=== PATIENT | male | born 1950 | race Caucasian/White ===

== ENCOUNTER → 2017-05-02 | Outpatient (CLI) | payer MEDICARE, MEDICAID ==
[2017-05-02] MEDS: TROPICAMIDE 1% 3 ML OPH (10:27)
[2017-05-02] MEDS: PROPARACAINE 0.5% 15 ML OPH (10:27)
[2017-05-02] MEDS: PHENYLephrine 10% 5 ML OPH (10:27)
[2017-05-02] MEDS: APRACLONIDINE 1% 0.1 ML OPH (10:27)
[2017-05-02] MEDS: OPHTHALMIC IRRIG SOLUTION 120 ML (10:27)
== END | disposition home or self-care (01) ==
LOC: RAD 09:44
DX: H26.8 Other specified cataract (principal)
CPT/HCPCS: 66821

== ENCOUNTER 2017-05-20 12:55 | Inpatient (IN) | payer MEDICARE, MEDICAID, OTHER ==
[2017-05-20 16:08] LABS: ADD MAN DIFF? NO
[2017-05-20 16:14] LABS: BASOPHILS % 0.3 % (0.0-2.0); EOSINOPHILS # 0.1 10^3/ul (0.0-0.5); EOSINOPHILS % 1.3 % (0.0-7.0); HEMATOCRIT 31.7 % (42.0-52.0); LYMPHOCYTES # 0.6 10^3/ul (0.8-2.9); LYMPHOCYTES % 6.4 % (15.0-51.0); MEAN CORPUSCULAR HEMOGLOBIN 27.5 pg (29.0-33.0); MEAN CORPUSCULAR HGB CONC 31.5 g/dl (32.0-37.0); MEAN CORPUSCULAR VOLUME 87.1 fl (82.0-101.0); MEAN PLATELET VOLUME 10.7 fl (7.4-10.4); MONOCYTE # 1.1 10^3/ul (0.3-0.9); MONOCYTES % 11.1 % (0.0-11.0); NEUTROPHIL # 7.6 10^3/ul (1.6-7.5); NEUTROPHILS % 79.3 % (39.0-77.0); PLATELET COUNT 122 10^3/UL (140-415); RED BLOOD COUNT 3.64 10^6/ul (4.70-6.10); RED CELL DISTRIBUTION WIDTH 15.4 % (11.5-14.5)
[2017-05-20 16:14] LABS: WHITE BLOOD COUNT 9.5 10^3/ul (4.8-10.8)
[2017-05-20 16:25] LABS: INR 1.13; PROTIME 14.7 Sec (11.9-14.9); PT RATIO 1.1
[2017-05-20 16:26] LABS: ANION GAP 21 (8-16); BLOOD UREA NITROGEN 77 mg/dl (7-20); CALCIUM 9.3 mg/dl (8.4-10.2); CARBON DIOXIDE 23 mmol/L (21-31); CHLORIDE 97 mmol/L (97-110); CREATININE 10.16 mg/dl (0.61-1.24); GLUCOSE 143 mg/dl (70-220); PARTIAL THROMBOPLASTIN TIME 41.6 Sec (25.0-35.0); POTASSIUM 5.9 mmol/L (3.5-5.1); SODIUM 135 mmol/L (135-144)
[2017-05-20 16:38] LABS: TROPONIN-I 0.104 ng/ml (0.00-0.12)
[2017-05-20] MEDS ORDERED: ONDANSETRON 4 MG INJ IV (17:00)
[2017-05-20] MEDS ORDERED: ACETAMINOPHEN 325 MG TAB PO (17:00)
[2017-05-20] MEDS: HYDROCODONE/APAP (10/325) TAB PO ×2 (19:00→22:14)
[2017-05-20] MEDS ORDERED: hydrALAzine 20 MG INJ IV (20:00)
[2017-05-20] MEDS: INSULIN ASPART [NOVOLOG] 3 ML PEN SC (21:00)
[2017-05-20] MEDS ORDERED: GLUCOSE GEL 15 GRAM TUBE PO ×2 (21:30)
[2017-05-20] MEDS: GABAPENTIN 300 MG CAP PO (21:58)
[2017-05-20] MEDS: NA POLYST SULFON 15 GM/60 ML BTL PO (21:58)
[2017-05-20] MEDS: HEPARIN 5,000 UNIT/0.5 ML VIAL SC (22:16)
[2017-05-21] MEDS ORDERED: SOD CHLORIDE 0.9% 500 ML IV
[2017-05-21] MEDS: SOD CHLORIDE 0.9% 500 ML IV (00:18)
[2017-05-21] MEDS: ALPRAZOLAM 1 MG TAB PO (02:55)
[2017-05-21 07:55] LABS: ANION GAP 20 (8-16); BLOOD UREA NITROGEN 84 mg/dl (7-20); CALCIUM 8.9 mg/dl (8.4-10.2); CARBON DIOXIDE 20 mmol/L (21-31); CHLORIDE 101 mmol/L (97-110); CREATININE 10.41 mg/dl (0.61-1.24); GLUCOSE 105 mg/dl (70-220); POTASSIUM 5.6 mmol/L (3.5-5.1); SODIUM 135 mmol/L (135-144)
[2017-05-21] MEDS ORDERED: INSULIN GLARGINE HUM REC ANLOG 32 UNIT SQ (09:00)
[2017-05-21] MEDS ORDERED: NON-FORMULARY/PATIENT OWN MED (Liraglutide (Victoza 3-Pak) 1.8 MG) SQ (09:00)
[2017-05-21] MEDS ORDERED: [UNRECOGNIZED DRUG - OTHER] SQ (09:00)
[2017-05-21] MEDS: GABAPENTIN 300 MG CAP PO ×2 (09:40→13:55)
[2017-05-21] MEDS: CLOPIDOGREL 75 MG TAB PO (09:40)
[2017-05-21] MEDS: HEPARIN 5,000 UNIT/0.5 ML VIAL SC ×2 (09:42→21:27)
[2017-05-21] MEDS ORDERED: PENDING SANTYL ORDER FOR WOUND CARE XX (10:00)
[2017-05-21] MEDS: INSULIN ASPART [NOVOLOG] 3 ML PEN SC ×3 (12:00→21:00)
[2017-05-21] MEDS: GABAPENTIN 100 MG CAP PO (21:21)
[2017-05-21] MEDS: HYDROCODONE/APAP (10/325) TAB PO (21:22)
[2017-05-21] MEDS: INFLUENZA VIRUS VACCINE 0.5 ML (DISPENSING) IM* (21:25)
[2017-05-21] MEDS: NA POLYST SULFON 15 GM/60 ML BTL PO (21:36)
[2017-05-22] MEDS: HYDROCODONE/APAP (10/325) TAB PO (05:25)
[2017-05-22 07:12] LABS: WHITE BLOOD COUNT 12.9 10^3/ul (4.8-10.8)
[2017-05-22 07:12] LABS: ADD MAN DIFF? NO; BASOPHIL # 0.1 10^3/ul (0.0-0.1); BASOPHILS % 0.4 % (0.0-2.0); EOSINOPHILS # 0.2 10^3/ul (0.0-0.5); EOSINOPHILS % 1.2 % (0.0-7.0); HEMATOCRIT 33.4 % (42.0-52.0); HEMOGLOBIN 10.1 g/dl (14.0-18.0); LYMPHOCYTES % 7.9 % (15.0-51.0); MEAN CORPUSCULAR HEMOGLOBIN 27.3 pg (29.0-33.0); MEAN CORPUSCULAR HGB CONC 30.2 g/dl (32.0-37.0); MEAN CORPUSCULAR VOLUME 90.3 fl (82.0-101.0); MEAN PLATELET VOLUME 11.1 fl (7.4-10.4); MONOCYTE # 1.1 10^3/ul (0.3-0.9); MONOCYTES % 8.4 % (0.0-11.0); NEUTROPHIL # 10.4 10^3/ul (1.6-7.5); NEUTROPHILS % 80.5 % (39.0-77.0); PLATELET COUNT 135 10^3/UL (140-415); RED CELL DISTRIBUTION WIDTH 15.9 % (11.5-14.5)
[2017-05-22] MEDS: INSULIN ASPART [NOVOLOG] 3 ML PEN SC ×4 (08:00→20:49)
[2017-05-22] MEDS ORDERED: PENDING SANTYL ORDER FOR WOUND CARE XX (08:00)
[2017-05-22 08:08] LABS: AMMONIA < 9 umol/l (9-30)
[2017-05-22] MEDS: GABAPENTIN 100 MG CAP PO ×3 (09:30→20:51)
[2017-05-22] MEDS: CLOPIDOGREL 75 MG TAB PO (09:30)
[2017-05-22 10:00] LABS: HEMOGLOBIN A1C 5.6 % (0-5.9)
[2017-05-22] MEDS: HEPARIN 5,000 UNIT/0.5 ML VIAL SC ×2 (10:41→20:50)
[2017-05-22 12:28] LABS: ALANINE AMINOTRANSFERASE 31 IU/L (13-69); ALBUMIN/GLOBULIN RATIO 1.15; ALKALINE PHOSPHATASE 229 IU/L (42-121); ANION GAP 24 (8-16); ASPARTATE AMINO TRANSFERASE 24 IU/L (15-46); BLOOD UREA NITROGEN 97 mg/dl (7-20); CALCIUM 8.5 mg/dl (8.4-10.2); CARBON DIOXIDE 17 mmol/L (21-31); CHLORIDE 102 mmol/L (97-110); GLUCOSE 92 mg/dl (70-220); SODIUM 136 mmol/L (135-144); TOTAL PROTEIN 5.6 g/dl (6.1-8.1)
[2017-05-22 12:46] LABS: CREATININE 11.02 mg/dl (0.61-1.24)
[2017-05-22 12:49] LABS: POTASSIUM 7.3 mmol/L (3.5-5.1)
[2017-05-22] MEDS: NA POLYST SULFON 15 GM/60 ML BTL PO (14:01)
[2017-05-22] MEDS ORDERED: BARIUM SULF 2% 450 ML BTL (BERRY SMOOTHIE) PO (17:00)
[2017-05-22] MEDS: morphine 2 MG INJ IV (18:16)
[2017-05-22] MEDS: LIDOCAINE 5% 35 GM OINT TOP (20:02)
[2017-05-23] MEDS: PIPER-TAZO 2.25 GM (PMX) 50 ML IVPB (01:00)
[2017-05-23] MEDS: morphine 2 MG INJ IV (06:37)
[2017-05-23] MEDS: INSULIN ASPART [NOVOLOG] 3 ML PEN SC ×4 (08:00→20:56)
[2017-05-23] MEDS: GABAPENTIN 100 MG CAP PO ×3 (08:05→20:54)
[2017-05-23] MEDS: CLOPIDOGREL 75 MG TAB PO (08:05)
[2017-05-23] MEDS: HEPARIN 5,000 UNIT/0.5 ML VIAL SC ×2 (08:07→20:55)
[2017-05-23] MEDS: INSULIN GLARGINE [LANtus] 3 ML PEN SC (08:08)
[2017-05-23] MEDS: HYDROCODONE/APAP (10/325) TAB PO (08:18)
[2017-05-23 10:47] LABS: IRON 58 ug/dl (35-150)
[2017-05-23 10:51] LABS: POTASSIUM 5.2 mmol/L (3.5-5.1)
[2017-05-23 10:57] LABS: % IRON SATURATION 43 % SAT (22-52); TOTAL IRON BINDING CAPACITY 136 ug/dl (241-421)
[2017-05-23] MEDS ORDERED: VANCOMYCIN IV PER PHARMACY XX (11:30)
[2017-05-23 13:46] LABS: HEPATITIS B SURFACE ANTIGEN NEGATIVE (NEGATIVE)
[2017-05-23 14:02] LABS: HEPATITIS B SURFACE ANTIBODY NEGATIVE (NEGATIVE)
[2017-05-23] MEDS: VANCOMYCIN 1.75 GM in DEXTROSE 5% 500 ML IVPB (14:23)
[2017-05-23] MEDS: SOD CHLORIDE 0.9% 250 ML IV (20:49)
[2017-05-23] MEDS: ZINC SULFATE 220 MG CAP NGT (20:54)
[2017-05-23] MEDS: ASCORBIC ACID 250 MG TAB PO (21:27)
[2017-05-23] MEDS: MULTIVIT/CA CARB/B CMPLX/FA TAB PO (21:27)
[2017-05-24] MEDS: morphine 2 MG INJ IV ×3 (02:00→21:38)
[2017-05-24 02:02] LABS: CREATINE KINASE 83 IU/L (23-200)
[2017-05-24 02:14] LABS: CK INDEX 19.2; TROPONIN-I 0.094 ng/ml (0.00-0.12)
[2017-05-24 07:57] LABS: ADD MAN DIFF? NO
[2017-05-24] MEDS: INSULIN ASPART [NOVOLOG] 3 ML PEN SC ×4 (08:00→21:00)
[2017-05-24 08:06] LABS: BASOPHIL # 0.1 10^3/ul (0.0-0.1); BASOPHILS % 0.4 % (0.0-2.0); EOSINOPHILS # 0.3 10^3/ul (0.0-0.5); EOSINOPHILS % 2.5 % (0.0-7.0); HEMATOCRIT 29.9 % (42.0-52.0); HEMOGLOBIN 9.3 g/dl (14.0-18.0); LYMPHOCYTES # 1.1 10^3/ul (0.8-2.9); LYMPHOCYTES % 9.6 % (15.0-51.0); MEAN CORPUSCULAR HEMOGLOBIN 27.6 pg (29.0-33.0); MEAN CORPUSCULAR HGB CONC 31.1 g/dl (32.0-37.0); MEAN CORPUSCULAR VOLUME 88.7 fl (82.0-101.0); MEAN PLATELET VOLUME 11.7 fl (7.4-10.4); MONOCYTE # 1.4 10^3/ul (0.3-0.9); MONOCYTES % 11.8 % (0.0-11.0); NEUTROPHIL # 8.5 10^3/ul (1.6-7.5); NEUTROPHILS % 73.4 % (39.0-77.0); PLATELET COUNT 107 10^3/UL (140-415); RED BLOOD COUNT 3.37 10^6/ul (4.70-6.10); RED CELL DISTRIBUTION WIDTH 16.1 % (11.5-14.5)
[2017-05-24 08:06] LABS: WHITE BLOOD COUNT 11.5 10^3/ul (4.8-10.8)
[2017-05-24] MEDS: LIDOCAINE 5% 35 GM OINT TOP (08:24)
[2017-05-24 08:30] LABS: LACTIC ACID 1.3 mmol/L (0.5-2.0)
[2017-05-24 08:32] LABS: ANION GAP 22 (8-16); BLOOD UREA NITROGEN 97 mg/dl (7-20); CALCIUM 8.6 mg/dl (8.4-10.2); CARBON DIOXIDE 21 mmol/L (21-31); CHLORIDE 96 mmol/L (97-110); GLUCOSE 80 mg/dl (70-220); POTASSIUM 5.2 mmol/L (3.5-5.1); SODIUM 134 mmol/L (135-144)
[2017-05-24] MEDS: CLOPIDOGREL 75 MG TAB PO (08:36)
[2017-05-24] MEDS: ASCORBIC ACID 250 MG TAB PO ×2 (08:36→21:37)
[2017-05-24] MEDS: ZINC SULFATE 220 MG CAP NGT (08:36)
[2017-05-24] MEDS: GABAPENTIN 100 MG CAP PO ×3 (08:36→21:37)
[2017-05-24] MEDS: HEPARIN 5,000 UNIT/0.5 ML VIAL SC ×2 (08:37→21:39)
[2017-05-24] MEDS: INSULIN GLARGINE [LANtus] 3 ML PEN SC (08:38)
[2017-05-24] MEDS: PIPER-TAZO 2.25 GM (PMX) 50 ML IVPB ×3 (08:46→21:47)
[2017-05-24 08:53] LABS: CREATININE 10.38 mg/dl (0.61-1.24)
[2017-05-24 09:08] LABS: HIV 1&2 ANTIBODY NEGATIVE (NEGATIVE)
[2017-05-24 09:49] LABS: CREATINE KINASE 77 IU/L (23-200)
[2017-05-24 10:03] LABS: TROPONIN-I 0.086 ng/ml (0.00-0.12)
[2017-05-24 12:39] LABS: CREATINE KINASE 62 IU/L (23-200)
[2017-05-24 12:53] LABS: CK INDEX 20.6; TROPONIN-I 0.075 ng/ml (0.00-0.12)
[2017-05-24] MEDS ORDERED: COLLAGENASE 30 GM TUBE TOP (16:00)
[2017-05-24] MEDS: HYDROCODONE/APAP (10/325) TAB PO (22:20)
[2017-05-25] MEDS: EPOETIN 3000 UNITS/1 ML INJ (ESRD) SC (01:50)
[2017-05-25] MEDS: ALPRAZOLAM 1 MG TAB PO (02:25)
[2017-05-25] MEDS: PIPER-TAZO 2.25 GM (PMX) 50 ML IVPB ×3 (06:00→21:49)
[2017-05-25 06:22] LABS: ADD MAN DIFF? NO
[2017-05-25 06:33] LABS: WHITE BLOOD COUNT 7.3 10^3/ul (4.8-10.8)
[2017-05-25 06:33] LABS: ABNORMAL IP MESSAGE 1; BASOPHILS % 0.4 % (0.0-2.0); EOSINOPHILS # 0.2 10^3/ul (0.0-0.5); HEMATOCRIT 26.3 % (42.0-52.0); HEMOGLOBIN 8.6 g/dl (14.0-18.0); LYMPHOCYTES # 0.8 10^3/ul (0.8-2.9); LYMPHOCYTES % 11.6 % (15.0-51.0); MEAN CORPUSCULAR HEMOGLOBIN 28.2 pg (29.0-33.0); MEAN CORPUSCULAR HGB CONC 32.7 g/dl (32.0-37.0); MEAN CORPUSCULAR VOLUME 86.2 fl (82.0-101.0); MEAN PLATELET VOLUME 11.7 fl (7.4-10.4); MONOCYTE # 0.7 10^3/ul (0.3-0.9); MONOCYTES % 10.1 % (0.0-11.0); NEUTROPHIL # 5.3 10^3/ul (1.6-7.5); NEUTROPHILS % 72.6 % (39.0-77.0); PLATELET COUNT 89 10^3/UL (140-415); POSITIVE DIFF @See below; RED BLOOD COUNT 3.05 10^6/ul (4.70-6.10); RED CELL DISTRIBUTION WIDTH 15.9 % (11.5-14.5)
[2017-05-25 06:59] LABS: VANCOMYCIN,RANDOM 15.3 ug/ml
[2017-05-25 07:23] LABS: ANION GAP 19 (8-16); BLOOD UREA NITROGEN 77 mg/dl (7-20); CALCIUM 8.2 mg/dl (8.4-10.2); CARBON DIOXIDE 23 mmol/L (21-31); CHLORIDE 98 mmol/L (97-110); CREATININE 9.08 mg/dl (0.61-1.24); GLUCOSE 78 mg/dl (70-220); POTASSIUM 4.6 mmol/L (3.5-5.1); SODIUM 135 mmol/L (135-144)
[2017-05-25] MEDS: INSULIN ASPART [NOVOLOG] 3 ML PEN SC ×4 (07:55→20:22)
[2017-05-25] MEDS: DEXTROSE 50% 50 ML SYRINGE IV (08:17)
[2017-05-25] MEDS: HYDROCODONE/APAP (10/325) TAB PO ×2 (08:26→21:27)
[2017-05-25] MEDS: GABAPENTIN 100 MG CAP PO ×3 (08:26→20:18)
[2017-05-25] MEDS: CLOPIDOGREL 75 MG TAB PO (08:26)
[2017-05-25] MEDS: ASCORBIC ACID 250 MG TAB PO ×2 (08:26→21:00)
[2017-05-25] MEDS: ZINC SULFATE 220 MG CAP NGT (08:26)
[2017-05-25] MEDS: HEPARIN 5,000 UNIT/0.5 ML VIAL SC ×2 (08:32→21:28)
[2017-05-25] MEDS: LIDOCAINE 5% 35 GM OINT TOP (08:34)
[2017-05-25] MEDS: INSULIN GLARGINE [LANtus] 3 ML PEN SC (09:59)
[2017-05-25] MEDS: COLLAGENASE 30 GM TUBE TOP (10:00)
[2017-05-25] MEDS: SOD CHLORIDE 0.9% 500 ML IV ×2 (11:43→16:18)
[2017-05-25] MEDS: SOD CHLORIDE 0.9% 1,000 ML IV (17:34)
[2017-05-25] MEDS: morphine 2 MG INJ IV (20:18)
[2017-05-25] MEDS: LINEZOLID 600 MG/D5W (PMX) 300 ML IVPB (20:18)
[2017-05-26] MEDS: morphine 2 MG INJ IV ×2 (00:17→09:13)
[2017-05-26] MEDS: SOD CHLORIDE 0.9% 1,000 ML IV ×3 (03:15→21:01)
[2017-05-26] MEDS: HYDROCODONE/APAP (10/325) TAB PO ×3 (03:58→20:25)
[2017-05-26] MEDS: PIPER-TAZO 2.25 GM (PMX) 50 ML IVPB ×3 (05:41→20:57)
[2017-05-26 06:45] LABS: HAAIG REFLEX REFLEX FILED
[2017-05-26] MEDS: INSULIN ASPART [NOVOLOG] 3 ML PEN SC ×4 (07:35→21:00)
[2017-05-26 08:02] LABS: HEPATITIS B SURFACE ANTIGEN NEGATIVE (NEGATIVE)
[2017-05-26 08:20] LABS: HEPATITIS B CORE ANTIBODY NEGATIVE (NEGATIVE); HEPATITIS C VIRAL ANTIBODY NEGATIVE (NEGATIVE)
[2017-05-26] MEDS: CLOPIDOGREL 75 MG TAB PO (09:05)
[2017-05-26] MEDS: ASCORBIC ACID 250 MG TAB PO ×2 (09:05→20:57)
[2017-05-26] MEDS: GABAPENTIN 100 MG CAP PO ×3 (09:05→20:56)
[2017-05-26] MEDS: LINEZOLID 600 MG/D5W (PMX) 300 ML IVPB ×2 (09:05→20:56)
[2017-05-26] MEDS: ZINC SULFATE 220 MG CAP NGT (09:05)
[2017-05-26] MEDS: INSULIN GLARGINE [LANtus] 3 ML PEN SC (09:07)
[2017-05-26] MEDS: COLLAGENASE 30 GM TUBE TOP (09:09)
[2017-05-26] MEDS: HEPARIN 5,000 UNIT/0.5 ML VIAL SC ×2 (10:00→21:00)
[2017-05-26] MEDS ORDERED: morphine 2 MG INJ IV (12:47)
[2017-05-26] MEDS: morphine 4 MG/ML VIAL IV ×2 (12:58→19:08)
[2017-05-27] MEDS: morphine 4 MG/ML VIAL IV ×3 (00:03→15:55)
[2017-05-27] MEDS: ALPRAZOLAM 1 MG TAB PO ×2 (00:14→23:29)
[2017-05-27] MEDS: HYDROCODONE/APAP (10/325) TAB PO ×3 (02:24→23:29)
[2017-05-27] MEDS: PIPER-TAZO 2.25 GM (PMX) 50 ML IVPB ×3 (05:25→21:56)
[2017-05-27] MEDS: INSULIN ASPART [NOVOLOG] 3 ML PEN SC ×4 (07:55→20:16)
[2017-05-27] MEDS: SOD CHLORIDE 0.9% 1,000 ML IV ×2 (08:30→13:08)
[2017-05-27] MEDS: LINEZOLID 600 MG/D5W (PMX) 300 ML IVPB ×2 (08:40→20:05)
[2017-05-27] MEDS: INSULIN GLARGINE [LANtus] 3 ML PEN SC (08:40)
[2017-05-27] MEDS: HEPARIN 5,000 UNIT/0.5 ML VIAL SC ×2 (08:43→20:16)
[2017-05-27] MEDS: COLLAGENASE 30 GM TUBE TOP (08:48)
[2017-05-27] MEDS: GABAPENTIN 100 MG CAP PO ×3 (08:49→20:05)
[2017-05-27] MEDS: ASCORBIC ACID 250 MG TAB PO ×2 (08:49→20:05)
[2017-05-27] MEDS: CLOPIDOGREL 75 MG TAB PO (08:49)
[2017-05-27] MEDS: ZINC SULFATE 220 MG CAP NGT (08:49)
[2017-05-27 08:52] LABS: PHOSPHORUS 9.8 mg/dl (2.5-4.9)
[2017-05-27 15:02] LABS: PHOSPHORUS 10.6 mg/dl (2.5-4.9)
[2017-05-27] MEDS: EPOETIN 3000 UNITS/1 ML INJ (ESRD) SC (16:52)
[2017-05-27] MEDS: morphine 2 MG INJ IV (20:19)
[2017-05-28] MEDS: SOD CHLORIDE 0.9% 1,000 ML IV ×2 (04:30→14:30)
[2017-05-28] MEDS: morphine 2 MG INJ IV ×3 (05:19→21:45)
[2017-05-28] MEDS: PIPER-TAZO 2.25 GM (PMX) 50 ML IVPB ×3 (05:58→21:34)
[2017-05-28] MEDS: INSULIN ASPART [NOVOLOG] 3 ML PEN SC ×4 (07:55→21:00)
[2017-05-28] MEDS: INSULIN GLARGINE [LANtus] 3 ML PEN SC (08:41)
[2017-05-28] MEDS: CLOPIDOGREL 75 MG TAB PO (09:18)
[2017-05-28] MEDS: LINEZOLID 600 MG/D5W (PMX) 300 ML IVPB (09:18)
[2017-05-28] MEDS: ASCORBIC ACID 250 MG TAB PO ×2 (09:18→21:34)
[2017-05-28] MEDS: ZINC SULFATE 220 MG CAP NGT (09:18)
[2017-05-28] MEDS: GABAPENTIN 100 MG CAP PO ×3 (09:18→21:34)
[2017-05-28] MEDS: COLLAGENASE 30 GM TUBE TOP (09:19)
[2017-05-28] MEDS: HEPARIN 5,000 UNIT/0.5 ML VIAL SC ×2 (09:24→22:21)
[2017-05-28 12:01] LABS: ADD UMIC YES; UR ASCORBIC ACID NEGATIVE (NEGATIVE); UR BACTERIA FEW /HPF (NONE SEEN); UR BILIRUBIN (Dip) NEGATIVE (NEGATIVE); UR BLOOD (Dip) 3+ mg/dL (NEGATIVE); UR CLARITY CLOUDY (CLEAR); UR COLOR YELLOW (YELLOW); UR GLUCOSE (Dip) NEGATIVE (NEGATIVE); UR KETONES (Dip) NEGATIVE (NEGATIVE); UR LEUKOCYTE ESTERASE (Dip) TRACE Leu/ul (NEGATIVE); UR MUCUS FEW /HPF (NONE SEEN); UR NITRITE (Dip) NEGATIVE (NEGATIVE); UR RBC 167 /HPF (0-5); UR SPECIFIC GRAVITY (Dip) 1.005 (1.003-1.030); UR TOTAL PROTEIN (Dip) 1+ mg/dl (NEGATIVE); UR UROBILINOGEN (Dip) NEGATIVE (NEGATIVE); UR WBC 27 /HPF (0-5)
[2017-05-28] MEDS: HYDROCODONE/APAP (10/325) TAB PO ×3 (12:32→23:13)
[2017-05-28] MEDS: SEVELAMER CARBONATE 2.4 GM PKT PO ×2 (12:35→17:36)
[2017-05-28] MEDS: ALPRAZOLAM 1 MG TAB PO (22:33)
[2017-05-29] MEDS: SOD CHLORIDE 0.9% 1,000 ML IV ×2 (00:30→05:54)
[2017-05-29] MEDS: morphine 2 MG INJ IV ×2 (00:52→06:38)
[2017-05-29] MEDS: HYDROCODONE/APAP (10/325) TAB PO ×4 (04:19→21:56)
[2017-05-29] MEDS: PIPER-TAZO 2.25 GM (PMX) 50 ML IVPB ×3 (05:49→21:53)
[2017-05-29] MEDS: INSULIN ASPART [NOVOLOG] 3 ML PEN SC ×4 (07:55→21:00)
[2017-05-29] MEDS: INSULIN GLARGINE [LANtus] 3 ML PEN SC (08:05)
[2017-05-29] MEDS: SEVELAMER 800 MG TAB PO ×3 (08:11→17:35)
[2017-05-29] MEDS: GABAPENTIN 100 MG CAP PO ×3 (08:11→21:52)
[2017-05-29] MEDS: ASCORBIC ACID 250 MG TAB PO ×2 (08:11→21:52)
[2017-05-29] MEDS: CLOPIDOGREL 75 MG TAB PO (08:11)
[2017-05-29] MEDS: ZINC SULFATE 220 MG CAP NGT (08:11)
[2017-05-29] MEDS: COLLAGENASE 30 GM TUBE TOP (08:12)
[2017-05-29] MEDS: HEPARIN 5,000 UNIT/0.5 ML VIAL SC ×2 (08:21→22:00)
[2017-05-29 09:17] LABS: ADD MAN DIFF? NO
[2017-05-29 09:25] LABS: WHITE BLOOD COUNT 16.8 10^3/ul (4.8-10.8)
[2017-05-29 09:25] LABS: BASOPHIL # 0.1 10^3/ul (0.0-0.1); BASOPHILS % 0.4 % (0.0-2.0); EOSINOPHILS # 0.4 10^3/ul (0.0-0.5); EOSINOPHILS % 2.3 % (0.0-7.0); HEMATOCRIT 30.4 % (42.0-52.0); HEMOGLOBIN 9.7 g/dl (14.0-18.0); LYMPHOCYTES # 0.9 10^3/ul (0.8-2.9); LYMPHOCYTES % 5.5 % (15.0-51.0); MEAN CORPUSCULAR HEMOGLOBIN 27.8 pg (29.0-33.0); MEAN CORPUSCULAR HGB CONC 31.9 g/dl (32.0-37.0); MEAN CORPUSCULAR VOLUME 87.1 fl (82.0-101.0); MEAN PLATELET VOLUME 12.4 fl (7.4-10.4); MONOCYTE # 1.1 10^3/ul (0.3-0.9); MONOCYTES % 6.4 % (0.0-11.0); NEUTROPHIL # 14.1 10^3/ul (1.6-7.5); NEUTROPHILS % 83.7 % (39.0-77.0); PLATELET COUNT 122 10^3/UL (140-415); RED BLOOD COUNT 3.49 10^6/ul (4.70-6.10); RED CELL DISTRIBUTION WIDTH 16.8 % (11.5-14.5)
[2017-05-29 09:57] LABS: ANION GAP 22 (8-16); BLOOD UREA NITROGEN 83 mg/dl (7-20); CALCIUM 8.3 mg/dl (8.4-10.2); CARBON DIOXIDE 17 mmol/L (21-31); CHLORIDE 99 mmol/L (97-110); GLUCOSE 60 mg/dl (70-220); POTASSIUM 4.8 mmol/L (3.5-5.1); SODIUM 133 mmol/L (135-144)
[2017-05-29 10:23] LABS: CREATININE 8.87 mg/dl (0.61-1.24)
[2017-05-29] MEDS: PHENAZOPYRIDINE 100 MG TAB PO (11:36)
[2017-05-29 13:42] LABS: PROCALCITONIN 2.92 ng/mL (<0.10)
[2017-05-29] MEDS: EPOETIN 3000 UNITS/1 ML INJ (ESRD) SC (17:50)
[2017-05-29] MEDS: DEXTROSE 50% 50 ML SYRINGE IV (21:33)
[2017-05-29] MEDS: GLUCOSE GEL 15 GRAM TUBE BUCCAL (21:44)
[2017-05-29] MEDS: ACETAMINOPHEN 500 MG TAB PO (22:32)
[2017-05-29] MEDS: ALPRAZOLAM 1 MG TAB PO (22:32)
[2017-05-29 23:37] LABS: GLUCOSE 76 mg/dl (70-220)
[2017-05-30] MEDS: ONDANSETRON 4 MG INJ IV (00:58)
[2017-05-30] MEDS: morphine 2 MG INJ IV ×2 (00:58→12:37)
[2017-05-30] MEDS: DEXTROSE 50% 50 ML SYRINGE IV ×2 (02:33→08:33)
[2017-05-30] MEDS: ALBUMIN HUMAN 25% 100 ML IV (05:16)
[2017-05-30] MEDS: INSULIN ASPART [NOVOLOG] 3 ML PEN SC ×4 (07:55→21:00)
[2017-05-30 08:22] LABS: ADD MAN DIFF? NO
[2017-05-30] MEDS: DEXTROSE 10% 1,000 ML IV (08:22)
[2017-05-30] MEDS: GLUCOSE GEL 15 GRAM TUBE BUCCAL (08:30)
[2017-05-30 08:32] LABS: ABNORMAL IP MESSAGE 1; BASOPHILS % 0.3 % (0.0-2.0); EOSINOPHILS # 0.3 10^3/ul (0.0-0.5); EOSINOPHILS % 2.2 % (0.0-7.0); HEMATOCRIT 27.1 % (42.0-52.0); HEMOGLOBIN 8.8 g/dl (14.0-18.0); LYMPHOCYTES # 0.8 10^3/ul (0.8-2.9); LYMPHOCYTES % 5.2 % (15.0-51.0); MEAN CORPUSCULAR HEMOGLOBIN 28.5 pg (29.0-33.0); MEAN CORPUSCULAR HGB CONC 32.5 g/dl (32.0-37.0); MEAN CORPUSCULAR VOLUME 87.7 fl (82.0-101.0); MEAN PLATELET VOLUME 11.9 fl (7.4-10.4); MONOCYTE # 1.3 10^3/ul (0.3-0.9); MONOCYTES % 8.2 % (0.0-11.0); NEUTROPHIL # 12.9 10^3/ul (1.6-7.5); NEUTROPHILS % 82.1 % (39.0-77.0); PLATELET COUNT 94 10^3/UL (140-415); POSITIVE DIFF @See below; RED BLOOD COUNT 3.09 10^6/ul (4.70-6.10); RED CELL DISTRIBUTION WIDTH 16.7 % (11.5-14.5)
[2017-05-30 08:32] LABS: WHITE BLOOD COUNT 15.7 10^3/ul (4.8-10.8)
[2017-05-30] MEDS: PIPER-TAZO 2.25 GM (PMX) 50 ML IVPB ×3 (08:36→22:12)
[2017-05-30] MEDS: ASCORBIC ACID 250 MG TAB PO ×2 (08:36→20:38)
[2017-05-30] MEDS: CLOPIDOGREL 75 MG TAB PO (08:36)
[2017-05-30] MEDS: ZINC SULFATE 220 MG CAP NGT (08:36)
[2017-05-30] MEDS: GABAPENTIN 100 MG CAP PO ×3 (08:36→20:38)
[2017-05-30] MEDS: MIDODRINE 5 MG TAB PO ×2 (08:36→17:37)
[2017-05-30] MEDS: SEVELAMER 800 MG TAB PO ×3 (08:36→17:36)
[2017-05-30] MEDS: HEPARIN 5,000 UNIT/0.5 ML VIAL SC ×2 (08:40→20:39)
[2017-05-30 09:03] LABS: ANION GAP 22 (8-16); BLOOD UREA NITROGEN 81 mg/dl (7-20); CALCIUM 8.4 mg/dl (8.4-10.2); CARBON DIOXIDE 19 mmol/L (21-31); CHLORIDE 99 mmol/L (97-110); GLUCOSE 80 mg/dl (70-220); POTASSIUM 4.7 mmol/L (3.5-5.1); SODIUM 135 mmol/L (135-144)
[2017-05-30 09:11] LABS: CREATININE 8.67 mg/dl (0.61-1.24)
[2017-05-30] MEDS: INFLUENZA VIRUS VACCINE 0.5 ML SYG IM* (09:37)
[2017-05-30] MEDS: COLLAGENASE 30 GM TUBE TOP (11:15)
[2017-05-30 11:19] LABS: LACTIC ACID 1.1 mmol/L (0.5-2.0)
[2017-05-30] MEDS: LINEZOLID 600 MG/D5W (PMX) 300 ML IVPB ×2 (11:26→20:36)
[2017-05-30 11:30] LABS: ALANINE AMINOTRANSFERASE 25 IU/L (13-69); ALBUMIN 2.9 g/dl (3.3-4.9); ALKALINE PHOSPHATASE 178 IU/L (42-121); ASPARTATE AMINO TRANSFERASE 17 IU/L (15-46); TOTAL PROTEIN 5.2 g/dl (6.1-8.1)
[2017-05-30] MEDS: HYDROCODONE/APAP (10/325) TAB PO ×2 (16:21→20:41)
[2017-05-30] MEDS: LIDOCAINE 5% 35 GM OINT TOP (16:42)
[2017-05-30] MEDS: METHADONE 5 MG TAB PO (17:36)
[2017-05-30 19:43] LABS: RAPID PLASMA REAGIN NONREACTIVE (NR)
[2017-05-30] MEDS: HYDROmorphONE 1 MG/ML SYG IV (22:17)
[2017-05-31] MEDS: ALPRAZOLAM 1 MG TAB PO (01:27)
[2017-05-31] MEDS: METHADONE 5 MG TAB PO ×3 (01:28→17:57)
[2017-05-31] MEDS: HYDROmorphONE 1 MG/ML SYG IV ×3 (02:21→23:15)
[2017-05-31] MEDS: ZOLPIDEM 5 MG TAB PO (03:11)
[2017-05-31] MEDS: PIPER-TAZO 2.25 GM (PMX) 50 ML IVPB ×3 (05:43→22:49)
[2017-05-31] MEDS: DEXTROSE 10% 1,000 ML IV ×2 (07:30→22:48)
[2017-05-31] MEDS: INSULIN ASPART [NOVOLOG] 3 ML PEN SC ×4 (07:55→20:32)
[2017-05-31] MEDS: LINEZOLID 600 MG/D5W (PMX) 300 ML IVPB ×2 (08:53→20:19)
[2017-05-31] MEDS: HEPARIN 5,000 UNIT/0.5 ML VIAL SC ×2 (08:58→20:24)
[2017-05-31] MEDS: MIDODRINE 5 MG TAB PO ×2 (09:00→17:00)
[2017-05-31] MEDS: ASCORBIC ACID 250 MG TAB PO ×2 (10:38→20:22)
[2017-05-31] MEDS: ZINC SULFATE 220 MG CAP NGT (10:38)
[2017-05-31] MEDS: SEVELAMER 800 MG TAB PO ×3 (10:38→17:58)
[2017-05-31] MEDS: CLOPIDOGREL 75 MG TAB PO (10:38)
[2017-05-31] MEDS: GABAPENTIN 100 MG CAP PO ×3 (10:39→20:21)
[2017-05-31] MEDS: LIDOCAINE 5% 35 GM OINT TOP (15:33)
[2017-05-31] MEDS: COLLAGENASE 30 GM TUBE TOP (15:35)
[2017-05-31] MEDS: EPOETIN 2000 UNITS/1 ML INJ (ESRD) SC (18:00)
[2017-05-31] MEDS: EPOETIN 3000 UNITS/1 ML INJ (ESRD) SC (18:21)
[2017-06-01] MEDS: METHADONE 5 MG TAB PO ×2 (01:19→08:06)
[2017-06-01] MEDS: HYDROmorphONE 1 MG/ML SYG IV ×2 (03:27→06:34)
[2017-06-01] MEDS: PIPER-TAZO 2.25 GM (PMX) 50 ML IVPB ×3 (05:50→23:02)
[2017-06-01 07:25] LABS: ADD MAN DIFF? NO
[2017-06-01 07:32] LABS: ABNORMAL IP MESSAGE 1; BASOPHIL # 0.1 10^3/ul (0.0-0.1); BASOPHILS % 0.4 % (0.0-2.0); EOSINOPHILS # 0.4 10^3/ul (0.0-0.5); EOSINOPHILS % 1.9 % (0.0-7.0); HEMATOCRIT 26.2 % (42.0-52.0); HEMOGLOBIN 8.5 g/dl (14.0-18.0); LYMPHOCYTES # 1.3 10^3/ul (0.8-2.9); LYMPHOCYTES % 5.7 % (15.0-51.0); MEAN CORPUSCULAR HEMOGLOBIN 28.4 pg (29.0-33.0); MEAN CORPUSCULAR HGB CONC 32.4 g/dl (32.0-37.0); MEAN CORPUSCULAR VOLUME 87.6 fl (82.0-101.0); MEAN PLATELET VOLUME 12.2 fl (7.4-10.4); MONOCYTES % 8.7 % (0.0-11.0); NEUTROPHIL # 18.8 10^3/ul (1.6-7.5); NEUTROPHILS % 80.9 % (39.0-77.0); PLATELET COUNT 101 10^3/UL (140-415); POSITIVE DIFF @See below; RED BLOOD COUNT 2.99 10^6/ul (4.70-6.10); RED CELL DISTRIBUTION WIDTH 17.2 % (11.5-14.5)
[2017-06-01 07:32] LABS: WHITE BLOOD COUNT 23.3 10^3/ul (4.8-10.8)
[2017-06-01 07:55] LABS: ANION GAP 23 (8-16); BLOOD UREA NITROGEN 94 mg/dl (7-20); CALCIUM 8.2 mg/dl (8.4-10.2); CARBON DIOXIDE 15 mmol/L (21-31); CHLORIDE 96 mmol/L (97-110); GLUCOSE 116 mg/dl (70-220); POTASSIUM 5.8 mmol/L (3.5-5.1); SODIUM 128 mmol/L (135-144)
[2017-06-01] MEDS: INSULIN ASPART [NOVOLOG] 3 ML PEN SC ×4 (07:55→20:50)
[2017-06-01] MEDS: HYDROCODONE/APAP (10/325) TAB PO ×2 (08:06→20:50)
[2017-06-01] MEDS: CLOPIDOGREL 75 MG TAB PO (08:07)
[2017-06-01] MEDS: COLLAGENASE 30 GM TUBE TOP (08:07)
[2017-06-01] MEDS: SEVELAMER 800 MG TAB PO ×3 (08:07→17:15)
[2017-06-01] MEDS: ZINC SULFATE 220 MG CAP NGT (08:07)
[2017-06-01] MEDS: ASCORBIC ACID 250 MG TAB PO ×2 (08:07→20:46)
[2017-06-01] MEDS: GABAPENTIN 100 MG CAP PO ×3 (08:07→20:46)
[2017-06-01] MEDS: MIDODRINE 5 MG TAB PO ×2 (08:08→17:00)
[2017-06-01] MEDS: LINEZOLID 600 MG/D5W (PMX) 300 ML IVPB ×2 (08:08→20:45)
[2017-06-01 08:12] LABS: CREATININE 9.62 mg/dl (0.61-1.24)
[2017-06-01] MEDS: HEPARIN 5,000 UNIT/0.5 ML VIAL SC ×2 (08:13→21:09)
[2017-06-01] MEDS: HYDROmorphONE 2 MG/ML SYG IV ×5 (09:50→22:03)
[2017-06-01] MEDS ORDERED: HYDROmorphONE 1 MG/ML SYG IV (12:30)
[2017-06-01] MEDS: ACETAMINOPHEN 500 MG TAB PO (15:57)
[2017-06-01] MEDS: METHADONE (1 MG/ML 5 ML PO UD SYG) PO (17:16)
[2017-06-01] MEDS: ONDANSETRON 4 MG INJ IV (17:23)
[2017-06-02] MEDS: HYDROmorphONE 2 MG/ML SYG IV ×8 (00:51→18:49)
[2017-06-02] MEDS: METHADONE (1 MG/ML 5 ML PO UD SYG) PO ×3 (02:40→18:19)
[2017-06-02] MEDS: DEXTROSE 10% 1,000 ML IV (06:51)
[2017-06-02] MEDS: PIPER-TAZO 2.25 GM (PMX) 50 ML IVPB ×2 (06:51→12:57)
[2017-06-02 07:08] LABS: ADD MAN DIFF? NO
[2017-06-02 07:09] LABS: WHITE BLOOD COUNT 23.8 10^3/ul (4.8-10.8)
[2017-06-02 07:09] LABS: ABNORMAL IP MESSAGE 1; BASOPHIL # 0.1 10^3/ul (0.0-0.1); BASOPHILS % 0.3 % (0.0-2.0); EOSINOPHILS # 0.2 10^3/ul (0.0-0.5); EOSINOPHILS % 0.9 % (0.0-7.0); HEMATOCRIT 28.8 % (42.0-52.0); LYMPHOCYTES # 1.3 10^3/ul (0.8-2.9); LYMPHOCYTES % 5.3 % (15.0-51.0); MEAN CORPUSCULAR HEMOGLOBIN 28.1 pg (29.0-33.0); MEAN CORPUSCULAR HGB CONC 31.3 g/dl (32.0-37.0); MEAN PLATELET VOLUME 12.1 fl (7.4-10.4); MONOCYTE # 1.7 10^3/ul (0.3-0.9); NEUTROPHIL # 19.6 10^3/ul (1.6-7.5); NEUTROPHILS % 82.5 % (39.0-77.0); PLATELET COUNT 108 10^3/UL (140-415); POSITIVE DIFF @See below
[2017-06-02] MEDS: GABAPENTIN 100 MG CAP PO ×3 (07:50→21:00)
[2017-06-02] MEDS: MIDODRINE 5 MG TAB PO (07:50)
[2017-06-02] MEDS: CLOPIDOGREL 75 MG TAB PO (07:50)
[2017-06-02] MEDS: ASCORBIC ACID 250 MG TAB PO (07:51)
[2017-06-02] MEDS: ZINC SULFATE 220 MG CAP NGT (07:51)
[2017-06-02] MEDS: SEVELAMER 800 MG TAB PO ×3 (07:51→17:55)
[2017-06-02] MEDS: HEPARIN 5,000 UNIT/0.5 ML VIAL SC (07:54)
[2017-06-02] MEDS: COLLAGENASE 30 GM TUBE TOP (07:57)
[2017-06-02] MEDS: INSULIN ASPART [NOVOLOG] 3 ML PEN SC ×4 (08:12→21:00)
[2017-06-02 08:20] LABS: ANION GAP 28 (8-16); BLOOD UREA NITROGEN 101 mg/dl (7-20); CALCIUM 8.8 mg/dl (8.4-10.2); CARBON DIOXIDE 14 mmol/L (21-31); CHLORIDE 91 mmol/L (97-110); GLUCOSE 147 mg/dl (70-220); SODIUM 127 mmol/L (135-144)
[2017-06-02 08:29] LABS: CREATININE 9.87 mg/dl (0.61-1.24)
[2017-06-02] MEDS: ONDANSETRON 4 MG INJ IV ×2 (11:56→16:42)
[2017-06-02] MEDS: LORAZEPAM 2 MG INJ IV (19:54)
[2017-06-02] MEDS: ALPRAZOLAM 0.5 MG TAB PO (21:00)
[2017-06-02] MEDS: GLUCOSE GEL 15 GRAM TUBE BUCCAL (21:12)
[2017-06-02] MEDS: GLUCAGON 1 MG INJ IM ×2 (22:05→22:52)
[2017-06-03] MEDS: METHADONE (1 MG/ML 5 ML PO UD SYG) PO ×3 (01:00→18:03)
[2017-06-03] MEDS: SEVELAMER 800 MG TAB PO (07:50)
[2017-06-03] MEDS: INSULIN ASPART [NOVOLOG] 3 ML PEN SC (08:45)
[2017-06-03] MEDS: CLOPIDOGREL 75 MG TAB PO (08:55)
[2017-06-03] MEDS: GABAPENTIN 100 MG CAP PO (08:55)
[2017-06-03] MEDS: COLLAGENASE 30 GM TUBE TOP (08:56)
[2017-06-03] MEDS: ALPRAZOLAM 0.5 MG TAB PO (08:56)
[2017-06-03] MEDS: HYDROmorphONE 2 MG/ML SYG IV ×3 (08:57→22:25)
[2017-06-03] MEDS: GLUCAGON 1 MG INJ IM ×2 (09:02→10:12)
[2017-06-03] MEDS: DEXTROSE 50% 50 ML SYRINGE IV (11:26)
[2017-06-03] MEDS ORDERED: LORAZEPAM 2 MG INJ IV (13:30)
[2017-06-03] MEDS ORDERED: ONDANSETRON 4 MG INJ IV (13:30)
[2017-06-03] MEDS ORDERED: ACETAMINOPHEN 650 MG SUPP PR (13:30)
[2017-06-03] MEDS ORDERED: BISACODYL 10 MG SUPP PR (19:00)
[2017-06-03] MEDS: LORAZEPAM 2 MG INJ IV (20:16)
[2017-06-03] MEDS: LIDOCAINE 5% 35 GM OINT TOP (22:24)
[2017-06-04] MEDS: METHADONE (1 MG/ML 5 ML PO UD SYG) PO ×2 (01:00→09:00)
[2017-06-04] MEDS: HYDROmorphONE 2 MG/ML SYG IV ×2 (06:50→10:11)
[2017-06-04] MEDS: LORAZEPAM 2 MG INJ IV ×2 (09:00→20:04)
[2017-06-04] MEDS: LIDOCAINE 5% 35 GM OINT TOP (10:14)
[2017-06-04] MEDS: HYDROmorphONE 50 MG in DEXTROSE 5% 45 ML IV (17:48)
[2017-06-04] MEDS ORDERED: HYDROmorphONE 50 MG in DEXTROSE 5% 45 ML IV (21:30)
[2017-06-05] MEDS: HYDROmorphONE 1 MG/ML SYG IV ×4 (00:56→12:15)
[2017-06-05] MEDS: ATROPINE 1% 5 ML OPH SL (01:03)
[2017-06-05] MEDS: DIMETHICONE STICK TOP (06:18)
[2017-06-05] MEDS: HYDROmorphONE 50 MG in DEXTROSE 5% 45 ML IV ×2 (06:20→17:06)
[2017-06-05] MEDS: ARTIFICIAL TEARS 15 ML OPH BOTH EYES (06:36)
[2017-06-05] MEDS: LORAZEPAM 2 MG INJ IV ×2 (07:49→18:58)
[2017-06-05] MEDS ORDERED: LORAZEPAM 2 MG INJ IV (19:00)
== END 2017-06-05 21:25 | disposition expired | DRG 299 ==
LOC: MS4 16:55 → TEL 05-24 23:07 → ICU 05-25 19:45 → TEL 05-26 18:32 → E/R 12:55 → MS1 06-02 16:00
PROVIDERS: Internal Medicine
PROC: 5A1D70Z Performance of Urinary Filtration, Intermittent, Less than 6 Hours Per Day (ICD-10-PCS; principal; 2017-05-22)
DX: E11.52 Type 2 diabetes mellitus with diabetic peripheral angiopathy with gangrene (principal); N18.6 End stage renal disease; A41.9 Sepsis, unspecified organism; I96 Gangrene, not elsewhere classified; J18.9 Pneumonia, unspecified organism; I12.0 Hypertensive chronic kidney disease with stage 5 chronic kidney disease or end stage renal disease; I44.1 Atrioventricular block, second degree; L97.822 Non-pressure chronic ulcer of other part of left lower leg with fat layer exposed; L97.812 Non-pressure chronic ulcer of other part of right lower leg with fat layer exposed; E11.40 Type 2 diabetes mellitus with diabetic neuropathy, unspecified; D69.6 Thrombocytopenia, unspecified; S09.90XA Unspecified injury of head, initial encounter; R29.6 Repeated falls; Z91.81 History of falling; R53.1 Weakness; N21.0 Calculus in bladder; E87.5 Hyperkalemia; W19.XXXA Unspecified fall, initial encounter; I34.2 Nonrheumatic mitral (valve) stenosis; I35.0 Nonrheumatic aortic (valve) stenosis; Z99.2 Dependence on renal dialysis; F10.21 Alcohol dependence, in remission; Z87.891 Personal history of nicotine dependence; H91.90 Unspecified hearing loss, unspecified ear; F41.9 Anxiety disorder, unspecified; G89.4 Chronic pain syndrome; N48.5 Ulcer of penis; E11.622 Type 2 diabetes mellitus with other skin ulcer; L60.1 Onycholysis; Z66 Do not resuscitate
CPT/HCPCS: 36415; 70450; 71045; 71250; 73130; 73620; 74018; 74176; 76775; 80048; 80053; 80076; 80202; 81001; 82140; 82550; 82553; 82728; 82947; 82962; 83036; 83540; 83605; 84100; 84132; 84145; 84443; 84484; 85025; 85610; 85730; 86592; 86703; 86704; 86706; 86709; 86803; 87040; 87070; 87081; 87086; 87340; 87400; 90686; 90935; 93005; 93931; 96360; 96372; 97163; 99285-25